=== PATIENT | female | born 1970 | race Caucasian/White ===

== ENCOUNTER 2024-08-12 07:47 | Outpatient (CLI) | payer OTHER | END 2024-08-12 07:52 | disposition home or self-care (01) | LOC: SONOGRAMA 07:47 | PROVIDERS: ATTEND Pathology Anatomic Pathology & Clinical Pathology | DX: C73 Malignant neoplasm of thyroid gland (principal); D34 Benign neoplasm of thyroid gland; E07.89 Other specified disorders of thyroid ==

== ENCOUNTER 2024-10-25 05:15 | Day surgery (SDC) | payer OTHER ==
[2024-10-21 09:10] VITALS: BP 133/85
[2024-10-21 09:53] LABS: HEMATOCRIT 42.4 % (36.0-45.00); HEMOGLOBIN 14.3 g/dL (12.0-15.00); MEAN CELL VOLUME 79.9 fL (80.00-100.00); MEAN CORPUSCULAR HEMOGLOBIN 26.9 pg (27.00-32.0); MEAN CORPUSCULAR HGB CONC 33.6 g/dl (32.0-36.0); PLATELET COUNT 213 K/uL (150-450); RED CELL DISTRIBUTION WIDTH 15.4 % (11.5-14.5)
[2024-10-21 10:04] LABS: PH,URINE 5.5 (5.0-8.0); URINE APPEARANCE Clear; URINE BILIRRUBIN Negative (NEGATIVE); URINE BLOOD Negative; URINE COLOR Yellow; URINE GLUCOSE Negative (NEGATIVE); URINE KETONE Negative (NEGATIVE); URINE LEUKOCYTE Negative; URINE NITRATE Negative; URINE PROTEIN Negative (NEGATIVE); URINE UROBILINOGEN 0.2 E.U./dl
[2024-10-21 10:09] LABS: URINE BACTERIA 357.3 uL (0.0-1933); URINE RBC 8.8 uL (0.0-20.8); URINE WBC 2.3 uL (0.0-23.2)
[2024-10-21 10:12] LABS: INR 1.03; PARTIAL THROMBOPLASTIN TIME 32.2 SECONDS (22.0-34.0); PROTHROMBIN TIME 11.2 SECONDS (9.0-11.5)
[2024-10-21 10:20] LABS: URINE CAST 0.29 uL (0.0-1.40)
[2024-10-21 11:04] LABS: ALBUMIN 4.1 gm/dL (3.4-5.0); BILIRUBIN TOTAL 0.71 mg/dL (0.3-1.2); CALCIUM 9.5 mg/dL (8.5-10.1); CREATININE SERUM 0.74 mg/dL (0.55-1.02); GFR 81.18; GLOBULINA 3.4 G/DL (2.4-3.5); POTASSIUM 4.65 mEq/L (3.5-5.1); TOTAL PROTEIN 7.5 gm/dL (6.4-8.2)
[~2024-10-25] VITALS: Ht 61 cm; Wt 5.0 kg
[2024-10-25] MEDS ORDERED: DEXAMETHASONE SODIUM PHOSPHATE 4 MG/ML VIAL ONE (07:02)
[2024-10-25] MEDS ORDERED: MORPHINE SULFATE 4 MG/ML VIAL IV ONE (09:15)
[2024-10-25] MEDS ORDERED: ENALAPRILAT DIHYDRATE 1.25 MG/ML VIAL IV ONE (10:24)
[2024-10-25] MEDS ORDERED: ENALAPRILAT DIHYDRATE 2.5 MG/2 ML VIAL IV ONE (10:30)
[2024-10-26] MEDS ORDERED: ACETAMINOPHEN 325 MG TABLET PO ONE (11:45)
== END 2024-10-25 13:10 | disposition home or self-care (01) ==
LOC: SURG 05:15 → SURH 05:15 → O/R 05:15 → CIR.AMB 05:15 → SURH 08:45 → EDSTATUS 08:45 → SURH 09:30 → SURG 10:21 → O/R 10:21 → SURG 12:52 → O/R 12:52 → CIR.AMB 13:10
PROVIDERS: ATTEND Surgery
DX: C73 Malignant neoplasm of thyroid gland (principal); E04.1 Nontoxic single thyroid nodule